=== PATIENT | male | born 1955 | race Caucasian/White ===

== ENCOUNTER 2017-09-14 09:28 | Emergency (ER) | payer MEDICAID ==
[2017-09-14 09:53] VITALS: BP 178/98; PULSE 90; RESP 18; TEMP 99; O2SAT 96
--- NOTE | 2017-09-14 10:16 | CPEKG ---
Heart Rate: 79 RR Interval: 759 P-R Interval: 152 QRSD Interval: 78 QT Interval: 352 QTC Interval: 404 P Chandler: 68 QRS Chandler: 8 T Wave Chandler: 40 EKG Severity - NORMAL ECG - EKG Impression: SINUS RHYTHM Electronically Signed By: Deneen Salazar 15-Sep-2017 15:09:35
--- NOTE | 2017-09-14 10:55 | EDPHY ---
H & P Time Seen by Provider: 09/14/17 09:59 HPI/ROS: CHIEF COMPLAINT: Concerned about ongoing scrotal infection HISTORY OF PRESENT ILLNESS: 62-year-old homeless male presents to the emergency department with concerns of ongoing scrotal infection. Patient states that he acquired a parasite while living on the streets in [place] in 2010. The he has been treating himself most recently with a topical Ivermectin cream. He has been seen multiple times by [facility] for similar complaints. He is concerned that he has an ongoing scrotal infection that involves parasites that are "dancing around in my scrotum ". No fevers or chills. He has had ongoing fatigue since 2004. He has no abdominal pain. His appetite is normal. No chest pain or difficulty breathing currently. REVIEW OF SYSTEMS: Constitutional: No fever, no chills. Eyes: No double or blurry vision. ENT: No sore throat. Respiratory: No cough, no shortness of breath. Cardiac: No chest pain. Gastrointestinal: No abdominal pain, vomiting or diarrhea. Genitourinary: No dysuria. Musculoskeletal: No neck or back pain. Skin: Rash to scrotum Neurological: No headache. Past Medical/Surgical History: Kidney stones Social History: Homeless Smoking Status: Heavy smoker Physical Exam: General Appearance: Alert, no distress. Vital signs are stable. The patient is in no apparent distress. Eyes: Pupils equal and round. Extraocular motions are all intact. ENT: Mouth: Mucous membranes moist. Respiratory: No wheezing, rhonchi, or rales, lungs are clear to auscultation. Cardiovascular: Regular rate and rhythm. Gastrointestinal: Abdomen is soft and nontender, no masses, no rebound or guarding, bowel sounds normal. Neurological: Alert and oriented x 3, cranial nerves II through XII grossly intact Skin: Warm and dry, no rashes. Genitourinary: Performed with nurseCassandra, and Paul cavazos, at bedside. Circumcised penis. There is no swelling or redness noted to the scrotum. No signs of cellulitis. No obvious lesions. The patient has some areas of excoriation where he has been scratching. There is no other surrounding tinea infections. Musculoskeletal: Nontender to palpate along the cervical, thoracic or lumbar spine. Neck is supple. Extremities: Full range of motion and no peripheral edema. Psychiatric: Patient is oriented X 3, there is no agitation. Constitutional: Initial Vital Signs Temperature (C) 37.2 C 09/14/17 09:50 Heart Rate 90 09/14/17 09:50 Respiratory Rate 18 09/14/17 09:50 Blood Pressure 178/98 H 09/14/17 09:50 O2 Sat (%) 96 09/14/17 09:50 O2 Delivery Mode Room Air Allergies/Adverse Reactions: No Known Allergies Allergy (Verified 09/14/17 09:50) Home Medications: Medication Instructions Recorded IBUPROFEN 06/24/16 Permethrin 5% [Elimite 5%] 60 gr TOP DAILY #0 gm 09/14/17 Medical Decision Making ED Course/Re-evaluation: 62-year-old male presents to the emergency department with concerns about parasitic infection over last nearly 10 years. I reassured the patient that I do not think antibiotics are indicated. I did offer topical permethrin cream that he may apply head to toe and then wash off after 8-14 hours. I did discouraged him from picking at the area as this may cause further spreading or potentially introduce bacteria and cause infection. I do not think further workup is indicated at this time. I recommended [facility]. Patient is not suicidal, homicidal. He is homeless and he knows his resources in [facility]. Patient was given a prescription for permethrin 0.5% cream. I also encouraged him to wash his linens in hot and dry the metal hot snuff drier. I encouraged him to have close follow-up with [facility]. I do not think any imaging studies are necessary. The nurse had performed EKG which reveals normal sinus rhythm. The patient has no chest pain. Differential Diagnosis: Including but not limited to scabies, contact dermatitis, allergic reaction, parasitic infection, delusional Departure - Departure Disposition: Home, Routine, Self-Care Clinical Impression: Scabies Condition: Good Instructions: Scabies (ED) Additional Instructions: Use topical permethrin cream as instructed. Apply head to toe and wash off after 8-14 hours. You may repeat in 2 weeks. You may also wash your linens in hot and dry this in a hot snuff drier to also prevent re-contamination. Referrals: Mary Shields, PAC [Primary Care Provider] - 1-2 days without fail Vaishali Gan MD [Medical Doctor] - As per Instructions (Infectious disease provider technical illustrations map inker) Prescriptions: Permethrin 5% [Elimite 5%] 60 gr TOP DAILY #0 gm
== END 2017-09-14 11:11 | disposition home or self-care (01) ==
DX: B86 Scabies (principal); F17.200 Nicotine dependence, unspecified, uncomplicated